=== PATIENT | female | born 1990 | race Hispanic/Latino ===

== ENCOUNTER 2021-09-29 12:47 | Day surgery (SDC) ==
[2021-09-29 13:36] VITALS: BMI 41.1
[2021-09-29] MEDS ORDERED: hydrALAZINE 20 MG/ML VIAL SLOW IVP PRN (15:11)
== END 2021-09-29 17:55 | disposition home or self-care (01) ==
LOC: EDBD 12:47 → CSHLD/OP 12:47
PROVIDERS: ATTEND Obstetrics & Gynecology
DX: O47.1 False labor at or after 37 completed weeks of gestation (principal); O22.8X3 Other venous complications in pregnancy, third trimester; I87.2 Venous insufficiency (chronic) (peripheral); Z3A.39 39 weeks gestation of pregnancy; Z86.16 Personal history of COVID-19; Z87.59 Personal history of other complications of pregnancy, childbirth and the puerperium; Z79.82 Long term (current) use of aspirin
CPT/HCPCS: 99283

== ENCOUNTER 2021-09-29 21:58 | Inpatient (IN) | payer MEDICAID, SELFPAY ==
[2021-09-29] MEDS ORDERED: Methylergonovine 0.2 MG/ML VIAL IM PRN (23:09)
[2021-09-29] MEDS ORDERED: Lidocaine 1% (PF) 30 ML VIAL SC PRN (23:09)
[2021-09-29] MEDS ORDERED: Ibuprofen 800 MG TAB PO PRN (23:09)
[2021-09-29] MEDS ORDERED: Misoprostol 200 MCG TAB PR PRN (23:09)
[2021-09-29] MEDS ORDERED: hydrALAZINE 20 MG/ML VIAL SLOW IVP PRN (23:09)
[2021-09-29] MEDS ORDERED: Promethazine HCl 25 MG/ML VIAL IM PRN (23:09)
[2021-09-29] MEDS ORDERED: Ondansetron PF 4 MG/2 ML Vial IVP PRN (23:09)
[2021-09-29] MEDS ORDERED: NS w/ Oxytocin 30 units 500 ML IV SCH (23:15)
[2021-09-29 23:40] LABS: Hemoglobin 12.3 g/dL (12.0-15.5); Mean Corpuscular HGB CONC 32.5 g/dL (32.0-36.0); Mean Corpuscular Hemoglobin 27.7 pg (27.0-33.0); Mean Corpuscular Volume 85.1 fl (81.6-98.3); Mean Platelet Volume 12.6 fl (7.4-10.4); Platelet Count 140 10x3/uL (150-450); RBC Distribution Width 14.8 % (11.5-14.5); Red Blood Cell (RBC) Count 4.44 10x6/uL (3.90-5.03); White Blood Cell (WBC) Count 8.9 10x3/uL (3.5-10.5)
[2021-09-30 00:08] LABS: Hep B Surf Ag Non-Reactive S/CO (NonReactive); Syphilis Antibody Nonreactive (Nonreactive); Syphilis Antibody Index 0.05 S/CO (<1.00 Non-Reactive)
[2021-09-30 01:11] VITALS: BMI 49.3
[2021-09-30] MEDS ORDERED: Lanolin Ointment 7 GM TUBE TOP PRN (03:36)
[2021-09-30] MEDS ORDERED: Benzocaine-Menthol 82.5 ML CAN TOP PRN (03:36)
[2021-09-30] MEDS ORDERED: Boostrix 0.5 ML (Tdap) VIAL IM ONE (03:36)
[2021-09-30] MEDS ORDERED: Bisacodyl 10 MG SUPP PR PRN (03:36)
[2021-09-30] MEDS ORDERED: NS w/ Oxytocin 30 units 500 ML IV SCH (03:36)
[2021-09-30] MEDS ORDERED: hydrALAZINE 20 MG/ML VIAL SLOW IVP PRN (03:36)
[2021-09-30] MEDS ORDERED: Methylergonovine 0.2 MG/ML VIAL IM PRN (03:36)
[2021-09-30] MEDS ORDERED: Milk Of Magnesia 30 ML UDCUP PO PRN (03:36)
[2021-09-30] MEDS ORDERED: Ondansetron PF 4 MG/2 ML Vial IVP PRN (03:36)
[2021-09-30] MEDS ORDERED: Varicella virus, LIVE 0.5 ML VIAL SC ONE (03:36)
[2021-09-30] MEDS ORDERED: Misoprostol 200 MCG TAB VAG PRN (03:36)
[2021-09-30] MEDS: Ibuprofen 800 MG TAB PO SCH ×3 (06:06→21:55)
[2021-09-30] MEDS: Ferrous Sulfate 325 MG TAB PO SCH ×2 (08:01→16:31)
[2021-09-30] MEDS: Docusate Calcium (SURFAK) 240 MG CAP PO SCH ×2 (09:13→21:55)
[2021-09-30] MEDS: Prenatal Vitamin 1 TAB PO SCH (09:13)
[2021-10-01] MEDS: Ibuprofen 800 MG TAB PO SCH ×2 (06:37→13:59)
[2021-10-01] MEDS: Ferrous Sulfate 325 MG TAB PO SCH (07:50)
[2021-10-01 08:01] VITALS: BP 108/78; TEMP 98.9
[2021-10-01] MEDS: Docusate Calcium (SURFAK) 240 MG CAP PO SCH (09:46)
[2021-10-01] MEDS: Prenatal Vitamin 1 TAB PO SCH (09:46)
== END 2021-10-01 16:20 | disposition home or self-care (01) | DRG 807 ==
LOC: CSHLD/OP 21:58 → CSHLD 21:59 → CSHPP 09-30 03:05
PROVIDERS: ADMIT Obstetrics & Gynecology; ATTEND Obstetrics & Gynecology
PROC: 10E0XZZ Delivery of Products of Conception, External Approach (ICD-10-PCS; principal; 2021-09-29)
PROC: 0KQM0ZZ Repair Perineum Muscle, Open Approach (ICD-10-PCS; 2021-09-29)
DX: O62.3 Precipitate labor (principal); Z37.0 Single live birth; Z3A.39 39 weeks gestation of pregnancy; O99.214 Obesity complicating childbirth; O70.1 Second degree perineal laceration during delivery
CPT/HCPCS: 85027; 86780; 86850; 86900; 86901; 87340; 99285